=== PATIENT | male | born 1985 | race Caucasian/White ===

== ENCOUNTER 2017-02-16 14:56 | Emergency (ER) | payer OTHER ==
[~2017-02-16] VITALS: Ht 175.2 cm; Wt 70.3 kg
[~2017-02-16 14:56] MED LIST: CLINDAMYCIN HC300 MG PO; LORAZEPAM1 MG PO; MOTRIN800 MG PO; NAPROSYN250 MG PO; NORCO 325 MG-51 TAB PO; VICODIN ES 7501 TAB PO
[2017-02-16] MEDS ORDERED: NAPROSYN500 MG PO (16:53)
== END 2017-02-16 17:00 | disposition home or self-care (01) ==
LOC: ED 14:56
DX: M25.511 Pain in right shoulder (principal); F17.200 Nicotine dependence, unspecified, uncomplicated; Z88.0 Allergy status to penicillin; Z88.4 Allergy status to anesthetic agent

== ENCOUNTER 2017-05-06 20:16 | Emergency (ER) | payer OTHER ==
[~2017-05-06] VITALS: Ht 175.2 cm; Wt 70.3 kg
[~2017-05-06 20:16] MED LIST changes: +NAPROSYN500 MG PO
[2017-05-06] MEDS ORDERED: CEPHALEXIN500 M1 PO (20:36)
[2017-05-06] MEDS ORDERED: SEPTDS PO (20:36)
== END 2017-05-06 21:15 | disposition home or self-care (01) ==
LOC: ED 20:16
DX: L03.116 Cellulitis of left lower limb (principal); Z88.0 Allergy status to penicillin; Z88.8 Allergy status to other drugs, medicaments and biological substances; F17.200 Nicotine dependence, unspecified, uncomplicated; F10.10 Alcohol abuse, uncomplicated; Y90.9 Presence of alcohol in blood, level not specified

== ENCOUNTER 2017-08-01 19:37 | Emergency (ER) | payer OTHER ==
[~2017-08-01] VITALS: Ht 175.2 cm; Wt 70.3 kg
[~2017-08-01 19:37] MED LIST changes: +CEPHALEXIN500 M1 PO; +SEPTDS PO
[2017-08-01] MEDS ORDERED: LEXAPRO10 MG PO (20:02)
[2017-08-01 20:21] LABS: BILIRUBIN NEGATIVE (NEGATIVE); BLOOD NEGATIVE (NEGATIVE); CLARITY CLEAR (CLEAR); COLOR YELLOW (YELLOW); GLUCOSE NEGATIVE (NEGATIVE); KETONE NEGATIVE (NEGATIVE); LEUKO ESTERASE NEGATIVE (NEGATIVE); NITRITE NEGATIVE (NEGATIVE); PH 5.5 (5.0-9.0); SPECIFIC GRAVITY >= 1.030 (1.005-1.030); UROBILINOGEN 0.2 E.U./dl (0.2-1.0)
[2017-08-01 20:31] LABS: URINE AMPHETAMINES < 1000 (1000ng/ml); URINE BARBITURATES < 200 (200ng/ml); URINE BENZODIAZEPINES < 200 (200ng/ml); URINE CANNABINOIDS (THC) < 50 (50ng/ml); URINE COCAINE < 300 (300ng/ml); URINE METHADONE < 300 (300ng/ml); URINE OPIATES < 300 (300ng/ml)
[2017-08-01 20:32] LABS: URINE PHENCYCLIDINE < 25 (25ng/ml)
[2017-08-01 20:41] LABS: WBC 0-2 wbc/hpf (0-5)
[2017-08-01 21:26] LABS: BASO % 0.4 % (0.0-1.0); EOS # 0.1 10*3/uL (0.0-0.4); EOS % 1.5 % (1.0-4.0); HEMATOCRIT 38.3 % (42.0-52.0); HEMOGLOBIN 13.2 g/dl (14.0-18.0); LYMPH # 1.7 10*3/uL (1.3-4.4); MEAN CELL VOLUME 86.5 fl (80.0-94.0); MEAN CORPUSCULAR HGB 29.8 pg (27.0-31.0); MEAN CORPUSCULAR HGB CONC 34.5 g/dl (33.0-37.0); MEAN PLATELET VOLUME 10.1 fl (9.6-12.3); MONO # 0.4 10*3/uL (0.1-1.0); MONO % 5.7 % (3.0-9.0); NEUT # 5.1 10*3/uL (2.3-7.9); NEUT % 69.1 % (47.0-73.0); PLATELET COUNT AUTOMATED 195 10*3/uL (130-400); RED BLOOD COUNT 4.43 10*6/uL (4.50-5.90); RED CELL DISTRI WIDTH 12.7 % (0-14.5); WHITE BLOOD COUNT 7.3 10*3/uL (4.8-10.8)
[2017-08-01 21:41] LABS: ALBUMIN 3.9 gm/dl (3.1-4.5); ALKALINE PHOSPHATASE 44 U/L (45-117); BUN 12 mg/dl (7-24); CHLORIDE 110 mmol/L (98-107); CREATININE 0.94 mg/dL (0.70-1.30); POTASSIUM 3.5 mmol/L (3.5-5.1); SGOT/AST 16 IU/L (3-35); SGPT/ALT 19 U/L (12-78); SODIUM 143 mmol/L (136-145); TOTAL PROTEIN 6.3 gm/dL (6.4-8.2)
[2017-08-01 21:42] LABS: ACETAMINOPHEN (TYLENOL) < 2.0 ug/ml (10-30)
[2017-08-01 21:50] LABS: ETHYL ALCOHOL < 3.0 mg/dl (<3)
== END 2017-08-02 09:00 | disposition home health service (06) ==
LOC: ED 19:37
PROVIDERS: Emergency Medicine Emergency Medical Services; Nurse Practitioner
DX: F41.9 Anxiety disorder, unspecified (principal); F32.9 Major depressive disorder, single episode, unspecified; F17.200 Nicotine dependence, unspecified, uncomplicated; F10.10 Alcohol abuse, uncomplicated; Z88.0 Allergy status to penicillin; Z88.8 Allergy status to other drugs, medicaments and biological substances; Z79.899 Other long term (current) drug therapy

== ENCOUNTER 2017-10-15 16:18 | Emergency (ER) | payer SELFPAY ==
[~2017-10-15] VITALS: Wt 77.1 kg
[~2017-10-15 16:18] MED LIST changes: +LEXAPRO10 MG PO
[2017-10-15] MEDS ORDERED: NAPROSYN500 MG PO (16:30)
== END 2017-10-15 17:43 | disposition home or self-care (01) ==
LOC: ED 16:18
DX: R07.81 Pleurodynia (principal); M25.511 Pain in right shoulder; R20.2 Paresthesia of skin; R03.0 Elevated blood-pressure reading, without diagnosis of hypertension; Z98.890 Other specified postprocedural states; Z79.899 Other long term (current) drug therapy; Z88.0 Allergy status to penicillin; Z88.8 Allergy status to other drugs, medicaments and biological substances; W19.XXXA Unspecified fall, initial encounter; Y93.89 Activity, other specified; Y92.89 Other specified places as the place of occurrence of the external cause; Y99.9 Unspecified external cause status

== ENCOUNTER 2021-03-14 12:11 | Emergency (ER) | payer OTHER ==
[~2021-03-14] VITALS: Ht 175.2 cm; Wt 73.0 kg
== END 2021-03-14 13:32 | disposition home or self-care (01) ==
LOC: ED 12:11
DX: R05 Cough (principal); Z20.822 Contact with and (suspected) exposure to COVID-19; R11.2 Nausea with vomiting, unspecified; R53.83 Other fatigue; Z88.0 Allergy status to penicillin; Z88.8 Allergy status to other drugs, medicaments and biological substances; Z79.899 Other long term (current) drug therapy

== ENCOUNTER 2021-04-19 02:43 | Emergency (ER) | payer OTHER ==
[~2021-04-19] VITALS: Ht 175.2 cm; Wt 73.9 kg
== END 2021-04-19 04:00 | disposition home or self-care (01) ==
LOC: ED 02:43
DX: S62.327A Displaced fracture of shaft of fifth metacarpal bone, left hand, initial encounter for closed fracture (principal); S60.221A Contusion of right hand, initial encounter; Z88.0 Allergy status to penicillin; Z88.6 Allergy status to analgesic agent; Z79.899 Other long term (current) drug therapy; X58.XXXA Exposure to other specified factors, initial encounter; Y93.89 Activity, other specified; Y92.89 Other specified places as the place of occurrence of the external cause; Y99.8 Other external cause status

== ENCOUNTER → 2021-05-30 | Outpatient (CLI) | payer OTHER | END | disposition home or self-care (01) | LOC: ORTHO 00:25 | PROVIDERS: ATTEND Orthopaedic Surgery | DX: M79.641 Pain in right hand (principal); M79.642 Pain in left hand ==

== ENCOUNTER 2021-06-04 07:18 | Emergency (ER) | payer OTHER ==
[~2021-06-04] VITALS: Ht 175.2 cm; Wt 73.9 kg
[2021-06-04 07:59] LABS: BASO # 0.1 10*3/uL (0.0-0.1); BASO % 0.6 % (0.0-1.0); EOS # 0.7 10*3/uL (0.0-0.4); EOS % 7.5 % (1.0-4.0); HEMATOCRIT 44.5 % (42.0-52.0); LYMPH # 2.2 10*3/uL (1.3-4.4); LYMPH % 25.1 % (27.0-41.0); MEAN CELL VOLUME 89.4 fl (80.0-94.0); MEAN CORPUSCULAR HGB 31.3 pg (27.0-31.0); MEAN CORPUSCULAR HGB CONC 35.1 g/dl (33.0-37.0); MEAN PLATELET VOLUME 9.5 fl (9.6-12.3); MONO # 0.6 10*3/uL (0.1-1.0); NEUT # 5.3 10*3/uL (2.3-7.9); NEUT % 59.6 % (47.0-73.0); PLATELET COUNT AUTOMATED 271 10*3/uL (130-400); RED BLOOD COUNT 4.98 10*6/uL (4.50-5.90); RED CELL DISTRI WIDTH 12.1 % (0-14.5); WHITE BLOOD COUNT 8.9 10*3/uL (4.8-10.8)
[2021-06-04 08:18] LABS: ALKALINE PHOSPHATASE 70 U/L (45-117); BUN 8 mg/dl (7-24); CHLORIDE 104 mmol/L (98-107); CREATININE 0.87 mg/dL (0.70-1.30); POTASSIUM 3.6 mmol/L (3.5-5.1); SGOT/AST 25 IU/L (3-35); SGPT/ALT 27 U/L (12-78); SODIUM 139 mmol/L (136-145); TOTAL PROTEIN 7.6 gm/dL (6.4-8.2)
[2021-06-04 08:28] LABS: TROPONIN I < 0.015 ng/ml (<0.045)
== END 2021-06-04 11:24 | disposition home or self-care (01) ==
LOC: ED 07:18
PROVIDERS: Emergency Medicine
DX: R07.9 Chest pain, unspecified (principal); R06.02 Shortness of breath; Z88.0 Allergy status to penicillin; Z79.899 Other long term (current) drug therapy; Z88.4 Allergy status to anesthetic agent; F17.200 Nicotine dependence, unspecified, uncomplicated

== ENCOUNTER 2021-07-06 19:11 | Emergency (ER) | payer OTHER ==
[~2021-07-06] VITALS: Ht 175.2 cm; Wt 73.0 kg
[2021-07-06 20:47] LABS: BILIRUBIN Negative (Negative); BLOOD Negative (Negative); CLARITY Clear (Clear); COLOR Yellow (Yellow); GLUCOSE Negative (Negative); KETONE Negative (Negative); LEUKO ESTERASE Negative (Negative); NITRITE Negative (Negative); SPECIFIC GRAVITY <= 1.005 (1.001-1.030); UROBILINOGEN 0.2 E.U./dl (0.0-1.0)
[2021-07-06 20:53] LABS: BACTERIA TRACE; EPITHELIAL CELLS 0-2; RBC 0-2 rbc/hpf (0-2); WBC 0-2 wbc/hpf (0-5)
[2021-07-06 21:10] LABS: BASO % 0.3 % (0.0-1.0); EOS % 0.4 % (1.0-4.0); HEMATOCRIT 41.9 % (42.0-52.0); LYMPH # 2.2 10*3/uL (1.3-4.4); LYMPH % 20.6 % (27.0-41.0); MEAN CELL VOLUME 92.3 fl (80.0-94.0); MEAN CORPUSCULAR HGB 32.2 pg (27.0-31.0); MEAN CORPUSCULAR HGB CONC 34.8 g/dl (33.0-37.0); MEAN PLATELET VOLUME 9.1 fl (9.6-12.3); MONO # 0.7 10*3/uL (0.1-1.0); MONO % 6.4 % (3.0-9.0); NEUT # 7.8 10*3/uL (2.3-7.9); PLATELET COUNT AUTOMATED 321 10*3/uL (130-400); RED BLOOD COUNT 4.54 10*6/uL (4.50-5.90); WHITE BLOOD COUNT 10.9 10*3/uL (4.8-10.8)
[2021-07-06 21:26] LABS: ALKALINE PHOSPHATASE 66 U/L (45-117); BUN 5 mg/dl (7-24); CHLORIDE 106 mmol/L (98-107); CREATININE 0.83 mg/dL (0.70-1.30); POTASSIUM 3.5 mmol/L (3.5-5.1); SGOT/AST 27 IU/L (3-35); SGPT/ALT 28 U/L (12-78); SODIUM 139 mmol/L (136-145); TOTAL PROTEIN 7.3 gm/dL (6.4-8.2)
== END 2021-07-07 00:43 | disposition home or self-care (01) ==
LOC: ED 19:11
PROVIDERS: Emergency Medicine
DX: N50.812 Left testicular pain (principal)

== ENCOUNTER 2023-12-31 15:08 | Emergency (ER) | payer OTHER ==
[~2023-12-31] VITALS: Wt 70.3 kg
[2023-12-31] MEDS ORDERED: PREDNISONE50 MG PO (16:14)
[2023-12-31] MEDS ORDERED: predniSONE 20 MG TAB PO ONE (16:15)
== END 2023-12-31 16:17 | disposition home or self-care (01) ==
LOC: ED 15:08
DX: M19.042 Primary osteoarthritis, left hand (principal); M19.041 Primary osteoarthritis, right hand; F90.9 Attention-deficit hyperactivity disorder, unspecified type; F41.9 Anxiety disorder, unspecified; Z88.0 Allergy status to penicillin; Z88.8 Allergy status to other drugs, medicaments and biological substances; Z98.890 Other specified postprocedural states

== ENCOUNTER 2025-07-02 20:06 | Emergency (ER) | payer OTHER ==
[~2025-07-02] VITALS: Ht 175.2 cm; Wt 65.8 kg
[~2025-07-02 20:06] MED LIST changes: +PREDNISONE50 MG PO
[2025-07-02] MEDS ORDERED: diphenhydrAMINE hydrochloride 50 MG/ML VIAL IV ONE (20:25)
[2025-07-02] MEDS ORDERED: FAMOTIDINE IV ONE (20:25)
[2025-07-02] MEDS ORDERED: EPINEPHrine Hydrochloride 1 MG/ML AMP IM ONE ×2 (20:25→21:25)
[2025-07-02] MEDS ORDERED: INFUSION IV ONE (20:25)
[2025-07-02] MEDS ORDERED: SODIUM CHLORIDE 0.9% 1,000 ML IV ONE (20:25)
[2025-07-02] MEDS ORDERED: PREDNISONE20 M1 PO (23:00)
[2025-07-02] MEDS ORDERED: EPIPEN 2-P0.3 MG/0.3 IJ (23:01)
== END 2025-07-02 23:12 | disposition home or self-care (01) ==
LOC: ED 20:06
DX: T78.40XA Allergy, unspecified, initial encounter (principal); T78.3XXA Angioneurotic edema, initial encounter; F90.9 Attention-deficit hyperactivity disorder, unspecified type; F41.9 Anxiety disorder, unspecified; Z88.0 Allergy status to penicillin; Z88.8 Allergy status to other drugs, medicaments and biological substances; X58.XXXA Exposure to other specified factors, initial encounter